=== PATIENT | female | born 1985 | race Caucasian/White ===

== ENCOUNTER 2022-09-04 10:38 | Day surgery (SDC) | payer OTHER, SELFPAY ==
[2022-09-01 10:37] VITALS: BMI 21.1
== END 2022-09-04 10:40 | disposition home or self-care (01) ==
LOC: OR 10:38 → AC 12:13 → OR 09-08 08:00
PROVIDERS: PCP Registered Nurse; Referring Provider Obstetrics & Gynecology; Visit Provider Obstetrics & Gynecology
DX: N81.10 Cystocele, unspecified (principal); N81.6 Rectocele; N81.89 Other female genital prolapse

== ENCOUNTER 2022-09-21 06:41 | Day surgery (SDC) | payer OTHER, SELFPAY ==
[2022-09-18 13:52] VITALS: BMI 21.1
[2022-09-21] VITALS (15 sets, daily range): BP systolic 94–116; BP diastolic 49–78; PULSE 61–107; RESP 10–22; TEMP 35.9–37; O2SAT 95–100; BMI 21.1; BMI 23.3
[2022-09-21] MEDS: LACTATED RINGERS 1,000 ML 42 ML IV (07:25)
[2022-09-21] MEDS: ACETAMINOPHEN 325 MG TABLET 650 MG PO ×3 (07:26→19:09)
--- NOTE | 2022-09-21 07:30 | PM.PREOP ---
Pre-operative Note COVID-19 Criteria for continued procedure: Non-surgical alternatives not available or appropriate per current SOC Interval Note History & Physical reviewed/Exam performed by Physician: Yes Changes to H&P: No H&P completed within 30 days and has changed as indicated here:: 08/23/22
[2022-09-21 07:31] LABS: COVID19 -Nasal RAPID Negative (Negative)
--- NOTE | 2022-09-21 08:18 | SUR.PREOP ---
0805 Pt back from OR, surgery delayed. Pt resting in bed. at bedside. Continuous pulse ox on. No pain. No nausesa. Call light in reach.
[2022-09-21] MEDS: CEFAZOLIN 2 GM/100 ML PREMIX 100 ML IV (09:25)
--- NOTE | 2022-09-21 09:57 | SUR.OPER ---
Lithotomy on padded OR bed, head on pillow, arms secured on padded arm boards at <90 degrees abduction. Legs secured in padded yellow fins stirrups.
[2022-09-21] MEDS: BUPIVACAINE 0.5% W/ EPI (PF) 30 ML VIAL INJ (10:13)
[2022-09-21] MEDS: HYDROMORPHONE 2 MG INJ IV (11:45)
--- NOTE | 2022-09-21 11:51 | PM.GYNOP.1 ---
Operative Date/Time/Diagnoses Date of procedure: 09/21/22 Time of procedure: 11:51 Pre-op diagnosis: Symptomatic cystocele and rectocele First to second degree uterine prolapse, desire to keep her uterus Post-op diagnosis: same Procedure & Clinicians Procedure: Procedures Operation Date: 09/21/22 07:45 Actual Procedure Side Surgeon p Anterior/Posterior repair, perineorrhaphy sacrospinous ligament fixation, perineorrhaphy Tamera Hood MD Indications: Symptomatic cystocele and rectocele First to second-degree uterine prolapse, desire to keep her uterus Surgeon: Tamera Hood Body And Fender Mechanic: Beronica Reagan Anesthesia Type: General and Local Operative Notes Findings: Third-degree cystocele Third-degree rectocele First to second-degree uterine prolapse Enlarged genital hiatus Closure Type: primary Specimen(s): none Applied: catheter (To continuous drainage) and other (Vaginal packing in place) Estimated blood loss (mL): 50 Blood products transfused: none Procedure in detail: The patient was taken to the operating room where she was placed in the dorsal supine position. After adequate general endotracheal anesthesia was achieved, she was placed in the dorsal lithotomy position, and prepped and draped in the usual sterile fashion. A weighted speculum was placed into the vagina. The apex of the cystocele was grasped laterally with Allis clamps. The midline of the cystocele was grasped with wide Allis clamps. 10 cc of 0.5% Marcaine with epinephrine were injected on either side of the midline submucosally. An incision was made between the 2 narrow Allis clamps at the apex of the cystocele using a #10 blade. The mucosa was undermined with Metzenbaum scissors and the mucosa was incised in the midline, moving the wide Allis clamps to the edges of the mucosa. This continued to all the way within 1.5 cm of the urethral meatus. The underlying fascia was dissected off of the mucosa using a # 10 blade and an open moistened Ray-Holland. The fascia was reapproximated with 0 Vicryl with 7 interrupted sutures. The excess vaginal mucosa was excised. The mucosa was closed with 2-0 Vicryl with simple interrupted sutures including the underlying fascia to close the space. The weighted speculum was removed from the vagina. Narrow Allis clamps were placed at the mucocutaneous junction. 6 cc of 0.5% Marcaine with epinephrine were injected between the 2 Allis clamps and down onto the perineal body. A triangular piece of tissue was excised using a #10 blade, between the 2 Allis clamps and extending down onto the perineal body approximately 1 cm. Allis clamps were placed in the midline of the rectocele. 10 cc of 0.5% Marcaine with epinephrine were injected submucosally on either side of the midline. The mucosa was undermined using Metzenbaum scissors and the mucosa was incised in the midline, moving the wide Allis clamps to the mucosal edges. This continued to the apex of the rectocele which was within 1.5 cm of the cervix. The space surrounding the right sacral spinous ligament was dissected out bluntly. They ligament was identified. Using the Capio needle, Prolene suture was placed into the ligament 2 cm from the ischial spine. This was then placed through the cervix from underneath the mucosa at the 7 o'clock position. This was tagged with a hemostat. This was repeated on the patient's right side with the suture in the cervix at the 5 o'clock position. This was also tagged with a hemostat. The fascia was reapproximated with 0 Vicryl with 8 simple interrupted sutures. The mucosa was trimmed on either side. The mucosa was closed using 2 0 Vicryl with simple interrupted sutures, approximately 4 of them were placed, and then the Prolene sutures were tied down to the sacral spinous ligaments pulling the cervix up. The remainder of the mucosa was closed with 2-0 Vicryl in simple interrupted sutures including the underlying fascia to close the space. On the perineum, the transverse perineal body was reapproximated with 0 Vicryl with 2 simple interrupted sutures. The subcutaneous layer was closed with 2-0 Vicryl with simple interrupted sutures. The skin was closed with 2 0 chromic in a subcuticular fashion. A Betadine moistened vaginal packing was placed into the vagina. The Gonzales catheter was left in place and was draining clear yellow urine. Sponge, lap, and instrument counts were correct x2. The patient tolerated the procedure well, and was taken to PACU in stable condition. Complications: none Post-operative Condition: stable Disposition: PACU Plan for aftercare: To acute care after recovery
--- NOTE | 2022-09-21 12:11 | SUR.PHASEI ---
to 224, with all belongings. pain improving.
[2022-09-21] MEDS: IBUPROFEN 600 MG TABLET PO ×2 (13:50→19:10)
[2022-09-21] MEDS: LACTATED RINGERS 1,000 ML 100 ML IV ×2 (13:51→19:35)
[2022-09-21] MEDS: KETOROLAC 30 MG/ML VIAL IV ×2 (13:51→19:10)
--- NOTE | 2022-09-21 20:11 | PC.NURSE ---
Late entry- Pt given Toradol and Ibuprofen. Pt had no reaction. Dr. Hood notified and ordered Tums. Tums administered see EMAR.
[2022-09-21] MEDS: DOCUSATE 100 MG CAPSULE 200 MG PO (20:22)
[2022-09-21] MEDS: ZOLPIDEM 5 MG TABLET PO (20:22)
[2022-09-21] MEDS: ONDANSETRON 4 MG/2 ML INJ IV (20:27)
[2022-09-21] MEDS: CALCIUM CARBONATE 500 MG TAB 1000 MG PO (20:30)
[2022-09-22] MEDS: ACETAMINOPHEN 325 MG TABLET 650 MG PO ×3 (00:29→12:14)
[2022-09-22 00:35] VITALS: BP 90/41; PULSE 94; RESP 18; TEMP 36.7; O2SAT 99
[2022-09-22 00:36] VITALS: BP 90/43
[2022-09-22 01:00] VITALS: BP 98/45; PULSE 88; RESP 16; O2SAT 98
[2022-09-22] MEDS: KETOROLAC 30 MG/ML VIAL IV ×2 (03:03→08:44)
[2022-09-22] MEDS: LACTATED RINGERS 1,000 ML 100 ML IV (05:10)
[2022-09-22 05:19] VITALS: BP 107/60; PULSE 83; RESP 19; TEMP 37; O2SAT 99
[2022-09-22 06:25] LABS: Add Manual Diff / Slide Review NO; Basophils Absolute Auto 0 /uL (0-100); Basophils Percent Auto 0.1 % (0-2); Eosinophils Absolute Auto 0 /uL (0-450); Eosinophils Percent Auto 0.2 % (2-4); Hematocrit 32.2 % (36-46); Hemoglobin 11.1 g/dL (12.0-16.0); Lymphocytes Absolute Auto 2300 /uL (1100-4500); Lymphocytes Percent Auto 17.6 % (25-40); Mean Corpuscular HGB Conc 34.3 % (30-36); Mean Corpuscular Hemoglobin 30.5 PG (26-34); Mean Corpuscular Volume 88.7 fL (80-100); Monocytes Absolute Auto 800 /uL (0-900); Neutrophils Absolute Auto 9800 /uL (1500-7000); Neutrophils Percent Auto 76.1 % (50-75); Platelet Count 312 X10^3/uL (150-400); Red Blood Cell Count 3.63 X10^6/uL (4.0-5.2); Red Cell Distribution Width 12.8 % (11.6-14.8); White Blood Cell Count 12.9 X10^3/uL (4.5-11.0)
[2022-09-22 06:27] LABS: Blood Urea Nitrogen 9 mg/dL (7-17); Calcium 8.1 mg/dL (8.4-10.2); Carbon Dioxide 25 mmol/L (22-32); Chloride 103 mmol/L (98-107); Estimated Glomerular Filt Rate > 60 mL/min (>60); Glucose 94 mg/dL (70-100); HEMOLYSIS < 15 (0-50); Potassium 3.9 mmol/L (3.4-5.1); Sodium 135 mmol/L (137-145)
--- NOTE | 2022-09-22 06:44 | PC.NURSE ---
Patient's Pain well controlled with scheduled Acetaminophen and Ibuprofen. Zofran IV given x1 for c/o nausea with good results, no emesis. Marlene pad with small amount of bloody drainage. Urinary catheter and vaginal packing DCd at 0600, patient DTV.
[2022-09-22 07:40] VITALS: BP 108/60; PULSE 79; RESP 17; TEMP 36.8; O2SAT 100
[2022-09-22] MEDS: DOCUSATE 100 MG CAPSULE 200 MG PO (08:44)
--- NOTE | 2022-09-24 12:57 | P.DS_ITS ---
History of Present Illness History of Present Illness Date Patient Seen: 09/22/22 Time Patient Seen: 10:30 Chief complaint: Pelvic *OPB* Narrative: Patient is a 37-year-old postop day # 1 status post anterior-posterior repair, and bilateral sacral spinous ligament fixation. Her vaginal packing and Gonzales catheter were removed this morning. She has been able to void with minimal postvoid residual. Her bleeding is minimal. Her pain is well controlled. She is tolerating a diet. Discharge Providers Provider Discharge Date: 09/22/22 Primary care physician: Alber Ramirez ND Discharge provider: Tamera Hood MD Summary Hospital Course Discharge Diagnosis: Symptomatic cystocele/rectocele Uterine prolapse Enlarged genital hiatus Anterior-posterior repair Bilateral sacral spinous ligament fixation Perineorrhaphy Hospital Course: Patient is a 37-year-old who presented on September 22, 2022 for a scheduled anterior-posterior repair/sacral spinous ligament fixation/perineorrhaphy. She underwent these procedures without complication. On postop day #1 her Gonzales catheter and vaginal packing were removed at 6:00 a.m.. Within 3 hours the patient was able to void 400 cc of clear yellow urine with only 16 cc of residual. She has tolerated a diet. She is ambulating without assistance. Her vaginal bleeding is minimal. She has no nausea or vomiting. Her pain is well controlled. She is discharged home to follow-up at 2 weeks for a postop visit. Status at Discharge Cognitive/behavioral status at discharge: oriented Functional status at discharge: independent ambulation Overall status at discharge: patient is progressing back to baseline Time Spent with Patient Time spent: Less than 30 minutes Exam Vital Signs (past 8 hours): Oxygen Delivery Method Room Air Oxygen Flow Rate 0 Narrative Exam Narrative: Generally: Patient is sitting up in bed, no acute distress Lungs: Clear to auscultation bilaterally Cardiovascular: Regular rate and rhythm Abdomen: Soft and flat Perineum: Dry Extremities: No edema, negative Homans Objective Labs 09/22/22 05:08 09/22/22 05:08 [facility] Medical History (Updated 09/29/20 @ 07:46 by Tamera Hood MD) Chronic back pain (~1992) Endometriosis Foot pain Fractures Heavy menstrual period (~1998) Hemorrhoid (~2015) Hypothyroidism (~1999) Irregular menstrual cycle Ovarian cyst Painful menstrual periods Partial blindness (~2002) Status post hysteroscopy Vision disorder Surgical History (Updated 09/29/20 @ 07:44 by Tamera Hood MD) H/O laparoscopy History of hysteroscopy History of hysteroscopy Social History household members: spouse and children Smoking Status: Never smoker alcohol intake: current Discharge Assessment & Plan Assessment and Plan Assessment: Postop day # 1 status post anterior-posterior repair, sacral spinous ligament fixation, and perineorrhaphy Patient doing very well Plan of Treatment: Discharge to home Follow-up in 2 weeks No heavy lifting Discharge instructions given Discharge Plan Discharge Plan Patient Disposition: Home Provider Discharge Comment: Call with fever, chills, or bleeding vaginally more than spotting to light Ibuprofen 600 mg every 6 hours as needed Tylenol 650 mg every 6 hours as needed Stool softeners for 6 weeks Discharge orders & Medications Discharge Orders: Discharge (Order); Ordered 09/22/22 Ordered By: Tamera Hood Prescriptions: No Action No Known Home Medications Follow up/Referrals: Tamera Hood MD [Physician] - (Patient already has a 2 week postop appointment scheduled Patient to call [phone] to schedule her 6 week postop appointment) Diet/Activity/Treatments Diet: Regular Activity: No heavy lifting Node lunging or squatting Skin/Wound/Dressing Care Report to your healthcare provider any signs of infection, such as:: chills, fever, increased pain and unusual drainage Visit Report/Discharge Packet Instructions: DI for Cystocele and Rectocele Repair Stand Alone Forms: Patient Portal/API, Surgery Discharge Discharge Data Primary Care Provider: Alber Ramirez Attending Provider: Tamera Hood Quality VTE Deep Vein Thrombosis/Pulmonary Embolism Present on Admission: No
== END 2022-09-22 13:20 | disposition home or self-care (01) ==
LOC: OR 06:42 → AC 06:42
PROVIDERS: PCP Registered Nurse; Referring Provider Obstetrics & Gynecology; Visit Provider Obstetrics & Gynecology
PROC: (CPT 57260; principal; 2022-09-21 07:45)
DX: N81.2 Incomplete uterovaginal prolapse (principal)
CPT/HCPCS: 57260; 57288; 36415; 80048; 81025; 85025; 87635; C9803; J0690; J1100; J1170; J1885; J2250; J2405; J2704; J3010

== ENCOUNTER 2023-06-28 13:44 | Day surgery (SDC) | payer OTHER, SELFPAY ==
[2022-09-21 12:24] VITALS: BMI 23.3
[2023-06-26 08:35] VITALS: BMI 21.3
[2023-06-28] MEDS: LACTATED RINGERS 1,000 ML 21 ML IV ×2 (13:59→17:15)
[2023-06-28 14:01] VITALS: BP 105/61; PULSE 68; RESP 20; TEMP 37.3; O2SAT 99
[2023-06-28 14:06] VITALS: BMI 21.1
--- NOTE | 2023-06-28 16:06 | PM.GYNHP.1 ---
History of Present Illness History of Present Illness Reason for admission: vaginal bleeding and urinary incontinence Narrative: Lyndsey Calzada is a 37 year old female 4 para 2 who presents for a TVT with cystoscopy, D&C hysteroscopy, and Kyleena IUD insertion. These procedures are being done due to stress urinary incontinence and menorrhagia. [facility] Medical History (Updated 03/18/23 @ 16:41 by Tamera Hood MD) Status post hysteroscopy Endometriosis Vision disorder Fractures Foot pain Chronic back pain (~1992) Partial blindness (~2002) Painful menstrual periods Ovarian cyst Irregular menstrual cycle Heavy menstrual period (~1998) Hemorrhoid (~2015) Hypothyroidism (~1999) Surgical History (Updated 06/26/23 @ 08:39 by Leslie Duarte RN) History of gynecologic surgery (09/21/22) History of hysteroscopy H/O laparoscopy History of hysteroscopy Social History household members: spouse and children Smoking Status: Never smoker alcohol intake: current Meds Home Medications and Allergies Home Medications Medication Instructions Recorded Confirmed Type No Known Home Medications 07/11/22 06/26/23 History Allergies Allergy/AdvReac Type Severity Reaction Status Date / Time codeine AdvReac Verified 06/01/23 09:28 Sulfa (Sulfonamide AdvReac Verified 06/01/23 09:28 Antibiotics) Exam Vital Signs (past 8 hours): - 06/28/23 14:01 Temperature 99.1 F Pulse Rate 68 Respiratory Rate 20 Blood Pressure 105/61 Pulse Oximetry 99 Oxygen Delivery Method Room Air Oxygen Delivery Method Room Air Narrative Exam Narrative: HEENT: No thyromegaly, no anterior cervical or supraclavicular lymphadenopathy. Lungs:Clear to auscultation bilaterally, no wheezes. Cardiovascular: Regular rate and rhythm, no murmurs, rubs, or gallops. Abdomen: No scars. No hepatosplenomegaly. No masses palpable. External genitalia: Normal Vagina: Increased urethrovesical angle with Valsalva Cervix: Normal. Well-supported Bimanual exam: 6 Week size anteverted uterus. Mobile. Extremities: No edema Assessment & Plan Assessment & Plan narrative: Assessment: 37-year-old 4 para 2 with stress urinary incontinence and menorrhagia Plan: D&C hysteroscopy, Kyleena IUD insertion, TVT with cystoscopy The risks, benefits, and alternatives to the procedure were explained to the patient. The risks including bleeding, infection, uterine perforation, injury to the urethra, ureters, or bladder. She understands all of these risks and agrees to proceed. A full par Q was held and consent form was signed.
--- NOTE | 2023-06-28 16:09 | PM.PREOP ---
Pre-operative Note Interval Note History & Physical reviewed/Exam performed by Physician: Yes Changes to H&P: No H&P completed within 30 days and has changed as indicated here:: 06/28/23
[2023-06-28] MEDS: CEFAZOLIN 2 GM/100 ML PREMIX 100 ML IV (16:30)
--- NOTE | 2023-06-28 17:00 | SUR.OPER ---
Lithotomy on padded OR bed, head on pillow, arms secured on padded arm boards at <90 degrees abduction. Legs secured in padded yellow fins stirrups.
[2023-06-28] MEDS: BUPIVACAINE 0.25% (PF) 30 ML, EPINEPHrine 0.15 MG INJ (17:03)
--- NOTE | 2023-06-28 17:38 | PM.GYNOP.1 ---
Operative Date/Time/Diagnoses Date of procedure: 06/28/23 Time of procedure: 17:38 Pre-op diagnosis: Stress urinary incontinence Menorrhagia Post-op diagnosis: same Procedure & Clinicians Procedure: Procedures Operation Date: 06/28/23 15:00 Actual Procedure Side Surgeon p TVT with cystoscopy, Kyleena IUD placement Tamera Hood MD s Hysteroscopy, suction D&C Tamera Hood MD Indications: 37-year-old 4 para 2 with menorrhagia and stress urinary incontinence Surgeon: Tamera Hood Anesthesia Type: General and Local Operative Notes Findings: TVT not in the bladder No polyps or fibroids 7 week size anteverted uterus Closure Type: primary Specimen(s): none Applied: other (Kyleena IUD) Estimated blood loss (mL): 25 Blood products transfused: none Procedure in detail: After informed consent was obtained, the patient was taken to the operating room where she was placed in the dorsal supine position. After adequate general endotracheal anesthesia was achieved, she was placed in the dorsal lithotomy position, and prepped and draped in the usual sterile fashion. A time-out was performed. A weighted speculum was placed into the vagina. Allis clamps were placed lateral to the urethral meatus, 2 cm away from the meatus. 4 cc of 0.25% Marcaine with epinephrine were injected submucosally. A 1 cm incision was made vertically. This was dissected out laterally with the Metzenbaum scissors. A rigid catheter was placed into the bladder and the bladder was drained. The midline on the abdomen was marked as well as 2 cm lateral on each side. With the bladder neck retracted away from the patient's right side, 10 cc of 0.25% Marcaine with epinephrine were injected along the proposed path of the TVT. This was repeated on the patient's right side with the bladder neck retracted away from the patient's left side. The proposed path was then dissected out to the # 6 Hegar dilator, on either side retracting bladder neck away from that side. The TVT was loaded. With the bladder neck retracted away from the patient's right side the TVT was directed towards the patient's right shoulder, perforating the urogenital diaphragm, going up behind the pubic symphysis and coming out approximately 2 cm from the midline. A 3 mm incision was made. The TVT introducer was grasped with a Vinicio. The TVT was removed from the introducer. All of this was repeated on the patient's left side with bladder neck retracted away from the patient's left side. The bladder was filled with 240 cc of sterile saline. A cystoscopy was performed. A bubble was seen at the dome of the bladder. The TVT or introducer was not visible in the bladder. The introducers were pulled up through the skin with care not to over tighten the TVT. A pickup was placed between the urethra and the TVT. The patient was made to cough and there was no leakage of urine. The plastic sheaths were removed without over tightening the TVT. With care not to over tighten, the TVT was cut below the skin line on the abdomen. Dermabond was placed over the abdominal incisions. Vaginally the anterior mucosa incision was closed with 3-0 chromic in a running interlocking fashion. Hemostasis was achieved. The weighted speculum was removed from the vagina. A bivalve speculum was placed into the vagina. The anterior lip of the cervix was grasped with a single-tooth tenaculum. The cervical os was sequentially dilated until the hysteroscope could pass easily into the endometrial cavity. Both fallopian tube ostia were observed. There were no polyps or fibroids. The hysteroscope was removed and gentle suction curettage with a #6 plastic curette was performed to thin the endometrial lining a Kyleena IUD was then placed into the fundus of the uterus. The strings were cut to 1.5 cm. The single-tooth tenaculum was removed from the anterior lip of the cervix. The bivalve speculum was removed from the vagina. Sponge, lap, and instrument counts were correct x2. The patient tolerated the procedure well, and was taken to PACU in stable condition. Complications: none Post-operative Condition: stable Disposition: PACU Plan for aftercare: Home after recovery
[2023-06-28 17:45] VITALS: BP 120/73; PULSE 93; RESP 12; TEMP 36.3; O2SAT 100
[2023-06-28 17:50] VITALS: BP 122/74; PULSE 80; RESP 12; O2SAT 100
[2023-06-28 17:55] VITALS: BP 114/73; PULSE 79; RESP 12; O2SAT 100
[2023-06-28] MEDS: OXYCODONE/ACETAMINOPHEN 5/325 TABLET 1 TAB PO (18:05)
[2023-06-28 18:10] VITALS: BP 125/72; PULSE 76; RESP 14; O2SAT 100
[2023-06-28 19:00] VITALS: BP 117/76; PULSE 68; RESP 12; TEMP 36.2; O2SAT 100
== END 2023-06-28 19:00 | disposition home or self-care (01) ==
PROVIDERS: PCP Registered Nurse; Referring Provider Obstetrics & Gynecology; Visit Provider Obstetrics & Gynecology
PROC: 0TSD0ZZ Reposition Urethra, Open Approach (ICD-10-PCS; CPT 57288; principal; 2023-06-28 15:00)
PROC: 0UDB8ZZ Extraction of Endometrium, Via Natural or Artificial Opening Endoscopic (ICD-10-PCS; CPT 58558; 2023-06-28 15:00)
DX: N39.3 Stress incontinence (female) (male) (principal); N92.0 Excessive and frequent menstruation with regular cycle; Z30.430 Encounter for insertion of intrauterine contraceptive device
CPT/HCPCS: 57288; 58558; 58300; C1771; J0171; J0690; J1100; J2250; J2405; J2704; J3010; J7296